=== PATIENT | female | born 2000 | race Caucasian/White ===

== ENCOUNTER 2022-04-04 09:10 | Emergency (ER) | payer OTHER ==
[~2022-04-04] VITALS: Ht 154.9 cm; Wt 104.3 kg
[2022-04-04 09:44] LABS: BASOPHILS % (AUTO) 0.2 % (0.0-5.0); EOSINOPHILS % (AUTO) 2.4 % (0.0-8.0); HEMATOCRIT 37.6 % (36-48); LYMPHOCYTES % (AUTO) 20.9 % (21.0-51.0); MEAN CORPUSCULAR HEMOGLOBIN 27.5 pg (27.0-33.0); MEAN CORPUSCULAR HGB CONC 33.2 g/dL (32.0-36.0); MEAN CORPUSCULAR VOLUME 82.8 fL (79-99); MONOCYTES % (AUTO) 11.5 % (3.0-13.0); NEUTROPHILS % (AUTO) 64.8 % (40.0-77.0); PLATELET COUNT (AUTO) 362 K/uL (130-400); RED BLOOD CELL COUNT(AUTO) 4.54 MIL/uL (4.00-5.50); RED CELL DISTRIBUTION WIDTH 13.5 % (11.0-15.5); WHITE BLOOD COUNT (AUTO) 6.3 K/uL (4.8-10.8)
[2022-04-04 10:25] LABS: ALBUMIN 3.3 g/dL (3.5-5.0); CREATININE 0.7 mg/dL (0.5-1.5); POTASSIUM 3.8 mmol/L (3.5-5.1); TOTAL PROTEIN, SERUM 7.2 g/dL (6.0-8.3)
[2022-04-04] MEDS ORDERED: UNASYN 3GM VIAL IV ONE (11:30)
[2022-04-04] MEDS ORDERED: IBUPROFEN 600 MG TABLET PO ONE (11:30)
[2022-04-04] MEDS ORDERED: AMOX-426 PO (11:31)
[2022-04-04] MEDS ORDERED: IBUP-2070 PO (11:31)
[2022-04-04] MEDS ORDERED: [UNRECOGNIZED DRUG - MIXTURE] IV SCH (12:00)
[2022-04-04 12:57] VITALS: BP 153/84
== END 2022-04-04 13:35 | disposition home or self-care (01) ==
LOC: EDH 09:10
DX: S61.250A Open bite of right index finger without damage to nail, initial encounter (principal); L08.9 Local infection of the skin and subcutaneous tissue, unspecified; F31.9 Bipolar disorder, unspecified; Z79.1 Long term (current) use of non-steroidal anti-inflammatories (NSAID); W55.01XA Bitten by cat, initial encounter; Y93.89 Activity, other specified; Y92.89 Other specified places as the place of occurrence of the external cause; Y99.8 Other external cause status
CPT/HCPCS: 99284; 96365; 80053; 85025; 81025; 36415; 73140; J0295

== ENCOUNTER 2022-06-20 09:04 | Emergency (ER) | payer BC, OTHER ==
[~2022-06-20] VITALS: Ht 160 cm; Wt 106.6 kg
[~2022-06-20 09:04] MED LIST: AMOX-426 PO; IBUP-2070 PO
[2022-06-20] MEDS ORDERED: SOLU-MEDROL 40MG VIAL IJ ONE (10:30)
[2022-06-20 10:33] VITALS: BP 142/98
[2022-06-20] MEDS ORDERED: METH4TAB3 PO (10:34)
[2022-06-20] MEDS ORDERED: DIPH-951 PO (10:34)
== END 2022-06-20 10:45 | disposition home or self-care (01) ==
LOC: EDH 09:04
DX: J06.9 Acute upper respiratory infection, unspecified (principal); M94.0 Chondrocostal junction syndrome [Tietze]; F41.9 Anxiety disorder, unspecified; F32.A Depression, unspecified; F43.10 Post-traumatic stress disorder, unspecified; G47.00 Insomnia, unspecified
CPT/HCPCS: 99284; 96374; J2920

== ENCOUNTER 2022-08-01 06:59 | Emergency (ER) | payer BC ==
[~2022-08-01] VITALS: Ht 162.6 cm; Wt 108.9 kg
[~2022-08-01 06:59] MED LIST changes: +DIPH-951 PO; +METH4TAB3 PO
[2022-08-01 07:00] VITALS: BP 162/104
[2022-08-01] MEDS ORDERED: IBUP-2070 PO (08:23)
[2022-08-01] MEDS ORDERED: LIDOCAINE HCL 2% VISCOUS 15 ML UDCUP PO ONE (08:30)
[2022-08-01] MEDS ORDERED: IBUPROFEN 600 MG TABLET PO ONE (08:30)
== END 2022-08-01 08:53 | disposition home or self-care (01) ==
LOC: EDH 06:59
DX: J02.8 Acute pharyngitis due to other specified organisms (principal); Z20.822 Contact with and (suspected) exposure to COVID-19; F41.9 Anxiety disorder, unspecified; F32.9 Major depressive disorder, single episode, unspecified; Z79.899 Other long term (current) drug therapy; Z98.890 Other specified postprocedural states
CPT/HCPCS: 99283; 87635; 87880; 87804 ×2; C9803

== ENCOUNTER 2022-08-09 05:39 | Emergency (ER) | payer BC ==
[~2022-08-09] VITALS: Ht 162.6 cm; Wt 108.9 kg
[2022-08-09 06:41] LABS: BASOPHILS % (AUTO) 0.2 % (0.0-5.0); EOSINOPHILS % (AUTO) 1.1 % (0.0-8.0); HEMATOCRIT 42.3 % (36-48); LYMPHOCYTES % (AUTO) 20.8 % (21.0-51.0); MEAN CORPUSCULAR HEMOGLOBIN 27.2 pg (27.0-33.0); MEAN CORPUSCULAR HGB CONC 33.6 g/dL (32.0-36.0); MEAN CORPUSCULAR VOLUME 80.9 fL (79-99); MONOCYTES % (AUTO) 7.5 % (3.0-13.0); NEUTROPHILS % (AUTO) 70.2 % (40.0-77.0); PLATELET COUNT (AUTO) 417 K/uL (130-400); RED BLOOD CELL COUNT(AUTO) 5.23 MIL/uL (4.00-5.50); WHITE BLOOD COUNT (AUTO) 8.8 K/uL (4.8-10.8)
[2022-08-09 06:44] LABS: APPEARANCE,URINE CLOUDY (CLEAR); BILIRUBIN,URINE NEGATIVE (NEGATIVE); COLOR,URINE LIGHT-YELLOW (YELLOW); GLUCOSE, URINE (UA) NEGATIVE (NEGATIVE); KETONES,URINE 20 mg/dL (NEGATIVE); LEUKOCYTE ESTERASE ,URINE 25 Leu/uL (NEGATIVE); NITRATE,URINE NEGATIVE (NEGATIVE); OCCULT BLOOD,URINE LARGE (NEGATIVE); PROTEIN,URINE NEGATIVE (NEGATIVE)
[2022-08-09 06:57] LABS: HCG,QUALITATIVE URINE NEGATIVE (NEGATIVE)
[2022-08-09 06:59] LABS: BACTERIA,URINE FEW /HPF (None Seen); CALCIUM OXALATE CRYSTALS,UR MANY /LPF (None Seen); MUCUS,URINE RARE LPF (None Seen); SQUAMOUS EPITHELIAL CELL,UR MOD /HPF (0-2)
[2022-08-09 07:03] LABS: CREATININE 0.6 mg/dL (0.5-1.5); POTASSIUM 3.6 mmol/L (3.5-5.1); TOTAL PROTEIN, SERUM 8.8 g/dL (6.0-8.3)
[2022-08-09] MEDS ORDERED: KETOROLAC 30MG VIAL (30MG/ML) IVP ONE (09:00)
[2022-08-09] MEDS ORDERED: 0.9%NACL 1000ML 1,000 ML IV ONE (09:00)
[2022-08-09] MEDS ORDERED: CEPH500B PO (12:47)
[2022-08-09] MEDS ORDERED: NAPR375T6 PO (12:47)
[2022-08-09 12:53] VITALS: BP 123/76
== END 2022-08-09 12:57 | disposition home or self-care (01) ==
LOC: EDH 05:39
DX: N20.0 Calculus of kidney (principal); F43.10 Post-traumatic stress disorder, unspecified; Z79.899 Other long term (current) drug therapy; Z98.890 Other specified postprocedural states
CPT/HCPCS: 99285; 74176; 96374; 76705; 96361; 80053; 83690; 85025; 87088; 81001; 81025; 36415; J7030; J1885

== ENCOUNTER 2022-08-14 03:45 | Emergency (ER) | payer BC ==
[~2022-08-14] VITALS: Ht 160 cm; Wt 107.0 kg
[~2022-08-14 03:45] MED LIST changes: +CEPH500B PO; +NAPR375T6 PO
[2022-08-14] MEDS ORDERED: MAG/ALUM/SIMETH 30 ML UDCUP PO ONE (04:30)
[2022-08-14] MEDS ORDERED: ONDANSETRON 4MG INJ IVP ONE (04:30)
[2022-08-14] MEDS ORDERED: LIDOCAINE HCL 2% VISCOUS 15 ML UDCUP PO ONE (04:30)
[2022-08-14] MEDS ORDERED: 0.9%NACL 1000ML 1,000 ML IV ONE (04:30)
[2022-08-14 04:34] LABS: BASOPHILS % (AUTO) 0.3 % (0.0-5.0); HEMATOCRIT 41.9 % (36-48); MEAN CORPUSCULAR HEMOGLOBIN 27.3 pg (27.0-33.0); MEAN CORPUSCULAR HGB CONC 33.7 g/dL (32.0-36.0); MONOCYTES % (AUTO) 6.7 % (3.0-13.0); NEUTROPHILS % (AUTO) 75.6 % (40.0-77.0); PLATELET COUNT (AUTO) 435 K/uL (130-400); RED BLOOD CELL COUNT(AUTO) 5.17 MIL/uL (4.00-5.50); RED CELL DISTRIBUTION WIDTH 13.5 % (11.0-15.5); WHITE BLOOD COUNT (AUTO) 10.8 K/uL (4.8-10.8)
[2022-08-14 04:55] LABS: APPEARANCE,URINE CLEAR (CLEAR); BILIRUBIN,URINE NEGATIVE (NEGATIVE); COLOR,URINE LIGHT-YELLOW (YELLOW); GLUCOSE, URINE (UA) NEGATIVE (NEGATIVE); KETONES,URINE 5 mg/dL (NEGATIVE); LEUKOCYTE ESTERASE ,URINE NEGATIVE Leu/uL (NEGATIVE); NITRATE,URINE NEGATIVE (NEGATIVE); OCCULT BLOOD,URINE NEGATIVE (NEGATIVE); PROTEIN,URINE NEGATIVE (NEGATIVE)
[2022-08-14 04:56] LABS: HCG,QUALITATIVE URINE NEGATIVE (NEGATIVE)
[2022-08-14 04:59] LABS: ALBUMIN 4.2 g/dL (3.5-5.0); CREATININE 0.6 mg/dL (0.5-1.5); POTASSIUM 3.5 mmol/L (3.5-5.1); TOTAL PROTEIN, SERUM 8.8 g/dL (6.0-8.3)
[2022-08-14] MEDS ORDERED: KETOROLAC 30MG VIAL (30MG/ML) IVP ONE (07:00)
[2022-08-14] MEDS ORDERED: PANTOPRAZOLE 40 MG/VIAL IVP ONE (07:00)
[2022-08-14 10:20] VITALS: BP 116/76
[2022-08-14] MEDS ORDERED: CIPR-278 PO (10:22)
[2022-08-14] MEDS ORDERED: ONDA4TAB10 PO (10:22)
[2022-08-14] MEDS ORDERED: ESOM40CA PO (10:22)
== END 2022-08-14 10:56 | disposition home or self-care (01) ==
LOC: EDH 03:45
DX: K52.9 Noninfective gastroenteritis and colitis, unspecified (principal); R10.10 Upper abdominal pain, unspecified; M54.9 Dorsalgia, unspecified; F43.10 Post-traumatic stress disorder, unspecified; G47.00 Insomnia, unspecified; Z79.899 Other long term (current) drug therapy; Z98.890 Other specified postprocedural states
CPT/HCPCS: 99284; 96374; 76770; 96375; 80053; 83690; 85025; 81003; 81025; 36415; J2405; J1885; C9113

== ENCOUNTER 2023-03-19 10:55 | Emergency (ER) | payer BC, OTHER ==
[~2023-03-19] VITALS: Ht 160 cm; Wt 113.4 kg
[~2023-03-19 10:55] MED LIST changes: +CIPR-278 PO; +ESOM40CA PO; +ONDA4TAB10 PO
[2023-03-19 11:02] VITALS: BP 165/94; PULSE 73; RESP 16; O2SAT 99
[2023-03-19 11:28] LABS: BASOPHILS # (AUTO) 0.02 K/uL (0.00-0.20); BASOPHILS % (AUTO) 0.1 % (0.0-5.0); EOSINOPHILS # (AUTO) 0.01 K/uL (0.00-0.70); EOSINOPHILS % (AUTO) 0.1 % (0.0-8.0); HEMATOCRIT 42.1 % (36-48); IMMATURE GRANULOCYTE ABSOLUTE 0.06 K/uL (0-1); LYMPHOCYTES % (AUTO) 7.5 % (21.0-51.0); MEAN CORPUSCULAR HEMOGLOBIN 27.3 pg (27.0-33.0); MEAN CORPUSCULAR HGB CONC 33.5 g/dL (32.0-36.0); MEAN CORPUSCULAR VOLUME 81.6 fL (79-99); MONOCYTES # (AUTO) 0.3 K/uL (0.1-1.0); MONOCYTES % (AUTO) 2.4 % (3.0-13.0); NEUTROPHILS # (AUTO) 12.4 K/uL (1.8-7.7); NEUTROPHILS % (AUTO) 89.5 % (40.0-77.0); PLATELET COUNT (AUTO) 457 K/uL (130-400); RED BLOOD CELL COUNT(AUTO) 5.16 MIL/uL (4.00-5.50); RED CELL DISTRIBUTION WIDTH 13.4 % (11.0-15.5); WHITE BLOOD COUNT (AUTO) 13.8 K/uL (4.8-10.8)
[2023-03-19 11:34] LABS: CREATININE 0.5 mg/dL (0.5-1.5); POTASSIUM 3.2 mmol/L (3.5-5.1)
[2023-03-19 11:38] LABS: ALBUMIN 3.5 g/dL (3.5-5.0); BILIRUBIN,TOTAL 0.4 mg/dL (0.2-1.0); TOTAL PROTEIN, SERUM 7.6 g/dL (6.0-8.3)
[2023-03-19] MEDS ORDERED: POTASSIUM BICARB/CIT AC 25 MEQ TABLET.EFF PO ONE (13:00)
[2023-03-19] MEDS ORDERED: 0.9%NACL 1000ML 1,000 ML IV ONE (13:00)
[2023-03-19 13:33] LABS: APPEARANCE,URINE CLOUDY (CLEAR); BILIRUBIN,URINE NEGATIVE (NEGATIVE); COLOR,URINE LIGHT-YELLOW (YELLOW); GLUCOSE, URINE (UA) NEGATIVE (NEGATIVE); KETONES,URINE 150 mg/dL (NEGATIVE); LEUKOCYTE ESTERASE ,URINE 25 Leu/uL (NEGATIVE); NITRATE,URINE NEGATIVE (NEGATIVE); OCCULT BLOOD,URINE NEGATIVE (NEGATIVE); PH,URINE 6.5 (5.0-8.0); PROTEIN,URINE 20 mg/dL (NEGATIVE); UROBILINOGEN,URINE 0.2 mg/dL (0.2-1.0)
[2023-03-19 13:37] LABS: AMPHET/METH SCREEN,URINE NEGATIVE (NEGATIVE); BARBITURATE SCREEN, URINE NEGATIVE (NEGATIVE); BENZODIAZEPINES SCREEN,URINE NEGATIVE (NEGATIVE); CANNABINOID SCREEN,URINE POSITIVE (NEGATIVE); COCAINE SCREEN,URINE NEGATIVE (NEGATIVE); OPIATE SCREEN,URINE NEGATIVE (NEGATIVE); PHENCYCLIDINE SCREEN,URINE NEGATIVE (NEGATIVE)
[2023-03-19 13:38] LABS: ADD UA MICROSCOPIC YES; HCG,QUALITATIVE URINE NEGATIVE (NEGATIVE)
[2023-03-19 13:44] LABS: BACTERIA,URINE FEW /HPF (None Seen); MUCUS,URINE RARE LPF (None Seen); SQUAMOUS EPITHELIAL CELL,UR MOD /HPF (0-2)
[2023-03-19] MEDS ORDERED: CEFTRIAXONE 1G VIAL IVPB ONE (14:00)
== END 2023-03-19 16:55 | disposition home or self-care (01) ==
LOC: EDH 10:55
DX: K29.70 Gastritis, unspecified, without bleeding (principal); R10.13 Epigastric pain; F41.9 Anxiety disorder, unspecified; F32.A Depression, unspecified; Z79.899 Other long term (current) drug therapy; Z98.890 Other specified postprocedural states
CPT/HCPCS: 99284; 96365; 80053; 80305; 85025; 81025; 36415; 81001; J7030; J0696